=== PATIENT | male | born 1980 | race Caucasian/White ===

== ENCOUNTER 2017-07-17 19:38 | Emergency (ER) | payer SELFPAY ==
[~2017-07-17] VITALS: Ht 154.9 cm; Wt 81.6 kg
[2017-07-17] MEDS ORDERED: LIDOCAINE UROJET 2% GEL 10 ML PKG ONE (20:55)
[2017-07-17 21:11] LABS: BILIRUBIN,URINE NEGATIVE (NEGATIVE); CLARITY,URINE CLEAR; COLOR,URINE YELLOW; GLUCOSE, URINE (UA) NEGATIVE (NEGATIVE); KETONES,URINE NEGATIVE (NEGATIVE); LEUKOCYTE ESTERASE ,URINE 2+ (NEGATIVE); NITRITE,URINE NEGATIVE (NEGATIVE); PH,URINE 6 (5-9); PROTEIN,URINE NEGATIVE (NEGATIVE); UROBILINOGEN,URINE NORMAL (NORMAL)
--- NOTE | 2017-07-17 21:20 | ED GU-Male ---
General Chief Complaint: -Male Stated Complaint: CANT URINATE Nursing Triage Note: Pt has been unable to urinate fully since yesterday. Pt reports he was able to urinate yesterday with pain. Source: patient Exam Limitations: no limitations History of Present Illness Date Seen by Provider: Jul 17, 2017 Time Seen by Provider: 21:20 Initial Comments ER with reports of unable to fully empty the bladder since this morning. He dribbled only a small amount this morning Timing/Duration: this morning Severity/Quality: moderate Prior Genitourinary Problems: none Associated Symptoms: denies symptoms Allergies and Home Medications Allergies Coded Allergies: No Known Drug Allergies (Unverified , 07/17/17) Patient Home Medication List Home Medication List Reviewed: Yes Constitutional: see HPI EENTM: see HPI Respiratory: no symptoms reported Cardiovascular: no symptoms reported Genitourinary: see HPI Musculoskeletal: no symptoms reported Skin: no symptoms reported Psychiatric/Neurological: No Symptoms Reported Endocrine: No Symptoms Reported Past Fjixfpe-Gyazow-Miqasg Hx Patient Social History Recent Foreign Travel: No Contact w/Someone Who Travel: No Recent Infectious Disease Expo: No Physical Exam Vital Signs Vital Signs - First Documented 07/17/17 19:51 Temp 98.0 Pulse 88 Resp 18 B/P (MAP) 145/87 (106) Pulse Ox 97 O2 Delivery Room Air Capillary Refill : Less Than 3 Seconds General Appearance: WD/WN, no apparent distress HEENT: PERRL/EOMI, normal ENT inspection Neck: non-tender, full range of motion Respiratory: normal breath sounds, no respiratory distress, no accessory muscle use Gastrointestinal: normal bowel sounds, non tender Male: other (pt is uncircumcised. Urethral meatus is very small, an 8fr barnett catheter was able to pass but with some difficulty. drained 300ml clear yellow urine. ) Neurologic/Psychiatric: alert, normal mood/affect, oriented x 3 Skin: normal color, warm/dry Progress/Results/Core Measures Suspected Sepsis Recent Fever Within 48 Hours: No Infection Criteria Present: None New/Unexplained Altered Menta: No Sepsis Screen: No Definite Risk Sepsis Diagnosis: SIRS Temperature:98.0 Pulse: 88 Respiratory Rate: 18 Laboratory Tests 07/17/17 21:20: White Blood Count 8.8 Blood Pressure 145 /87 Mean: 106 Laboratory Tests 07/17/17 21:20: Creatinine 0.88, Platelet Count 234 Results/Orders Lab Results Laboratory Tests Test 07/17/17 21:02 07/17/17 21:20 07/17/17 21:56 Range/Units Urine Color YELLOW Urine Clarity CLEAR Urine pH 6 5-9 Urine Specific [place] 1.020 1.016-1.022 Urine Protein NEGATIVE NEGATIVE Urine Glucose (UA) NEGATIVE NEGATIVE Urine Ketones NEGATIVE NEGATIVE Urine Nitrite NEGATIVE NEGATIVE Urine Bilirubin NEGATIVE NEGATIVE Urine Urobilinogen NORMAL NORMAL MG/DL Urine Leukocyte Esterase 2+ H NEGATIVE Urine RBC (Auto) 2+ H NEGATIVE Urine RBC 5-10 H /HPF Urine WBC 0-2 /HPF Urine Crystals NONE /LPF Urine Bacteria NEGATIVE /HPF Urine Casts NONE /LPF Urine Mucus NEGATIVE /LPF Urine Culture Indicated YES White Blood Count 8.8 4.3-11.0 10^3/uL Red Blood Count 5.00 4.35-5.85 10^6/uL Hemoglobin 15.8 13.3-17.7 G/DL Hematocrit 45 40-54 % Mean Corpuscular Volume 90 80-99 FL Mean Corpuscular Hemoglobin 32 25-34 PG Mean Corpuscular Hemoglobin Concent 35 32-36 G/DL Red Cell Distribution Width 13.0 10.0-14.5 % Platelet Count 234 130-400 10^3/uL Mean Platelet Volume 11.0 H 7.4-10.4 FL Neutrophils (%) (Auto) 80 H 42-75 % Lymphocytes (%) (Auto) 14 12-44 % Monocytes (%) (Auto) 6 0-12 % Eosinophils (%) (Auto) 0 0-10 % Basophils (%) (Auto) 0 0-10 % Neutrophils # (Auto) 7.0 1.8-7.8 X 10^3 Lymphocytes # (Auto) 1.2 1.0-4.0 X 10^3 Monocytes # (Auto) 0.5 0.0-1.0 X 10^3 Eosinophils # (Auto) 0.0 0.0-0.3 10^3/uL Basophils # (Auto) 0.0 0.0-0.1 10^3/uL Sodium Level 141 135-145 MMOL/L Potassium Level 3.8 3.6-5.0 MMOL/L Chloride Level 109 H 98-107 MMOL/L Carbon Dioxide Level 24 21-32 MMOL/L Anion Gap 8 5-14 MMOL/L Blood Urea Nitrogen 18 7-18 MG/DL Creatinine 0.88 0.60-1.30 MG/DL Estimat Glomerular Filtration Rate > 60 BUN/Creatinine Ratio 20 Glucose Level 123 H 70-105 MG/DL Calcium Level 9.2 8.5-10.1 MG/DL My Orders Orders - WILY HAWTHORNE FREE LANCE MODEL Cbc With Automated Diff (07/17/17 21:06) Basic Metabolic Panel (07/17/17 21:06) Lidocaine 2% (Urojet) (Xylocaine Urojet) (07/17/17 21:30) Hydrocodone/Apap 5/325 Tablet (Lortab 5 (07/17/17 21:30) Neis Demetris Dna Urine Test (07/17/17 21:22) Chlamydia Dna Urine Test (07/17/17 21:22) Medications Given in ED Current Medications Medications Dose Ordered Sig/Yayo Route Start Time Stop Time Status Last Admin Dose Admin Acetaminophen/ Hydrocodone Bitart 1 tab ONCE ONCE PO 07/17/17 21:30 07/17/17 21:31 DC 07/17/17 21:46 1 TAB Lidocaine HCl 10 ml ONCE ONCE TOP 07/17/17 21:30 07/17/17 21:31 DC 07/17/17 21:03 10 ML Vital Signs/I&O Vital Sign - Last 12Hours 07/17/17 19:51 Temp 98.0 Pulse 88 Resp 18 B/P (MAP) 145/87 (106) Pulse Ox 97 O2 Delivery Room Air Capillary Refill : Less Than 3 Seconds Blood Pressure Mean: 106 Departure Communication (Admissions) Progress Notes 2229-urethral stricture Dr. Carrera was able to use lidocaine and curved hemostats to open the urethral stricture. dilated with 12 fr barnett cath, then 14fr barnett cath, then 16 fr barnett cath attached to a leg bag. would like to have pt come back to ER on Friday for Cath removal. Prophylactic antibiotics and follow up in office. Impression Impression: Primary Impression: Urethral stricture Disposition: HOME, SELF-CARE Condition: Stable Departure-Patient Inst. Decision time for Depature: 22:32 Referrals: NO,LOCAL PHYSICIAN (PCP/Family) Primary Care Physician Patient Instructions: NO INSTRUCTIONS GIVEN Add. Discharge Instructions: 1. Leave the catheter in place until Friday. Return to the emergency room on Friday to have the catheter removed. Take antibiotics as directed. Call Dr. Carrera's office on Friday morning for an appointment for follow-up. Scripts Sulfamethoxazole/Trimethoprim (Bactrim Ds Tablet) 1 Each Tablet 1 EACH PO BID, #10 TAB Prov: WILY HAWTHORNE APRN 07/17/17 Copy Copies To 1: ZAYDA CARRERA MD, PETER J APRN Jul 17, 2017 21:20
[2017-07-17] MEDS ORDERED: LIDOCAINE UROJET 2% GEL 10 ML PKG TOP ONE (21:30)
[2017-07-17] MEDS ORDERED: HYDROcodone/APAP 5 MG/325 MG (LORTAB) TAB PO ONE (21:30)
[2017-07-17 21:35] LABS: BASOPHILS % (AUTO) 0 % (0-10); EOSINOPHILS % (AUTO) 0 % (0-10); HEMATOCRIT 45 % (40-54); HEMOGLOBIN 15.8 G/DL (13.3-17.7); LYMPHOCYTES # (AUTO) 1.2 X 10^3 (1.0-4.0); LYMPHOCYTES % (AUTO) 14 % (12-44); MEAN CORPUSCULAR HEMOGLOBIN 32 PG (25-34); MEAN CORPUSCULAR HGB CONC 35 G/DL (32-36); MEAN CORPUSCULAR VOLUME 90 FL (80-99); MONOCYTES # (AUTO) 0.5 X 10^3 (0.0-1.0); MONOCYTES % (AUTO) 6 % (0-12); NEUTROPHILS % (AUTO) 80 % (42-75); PLATELET COUNT 234 10^3/uL (130-400); WHITE BLOOD COUNT 8.8 10^3/uL (4.3-11.0)
[2017-07-17 21:42] LABS: BACTERIA,URINE NEGATIVE /HPF; WBC,URINE 0-2 /HPF
[2017-07-17 21:51] LABS: BUN/CREATININE RATIO 20; CALCIUM 9.2 MG/DL (8.5-10.1); CARBON DIOXIDE 24 MMOL/L (21-32); CHLORIDE 109 MMOL/L (98-107); CREATININE SERUM 0.88 MG/DL (0.60-1.30); GFR ESTIMATED > 60; GLUCOSE 123 MG/DL (70-105); POTASSIUM 3.8 MMOL/L (3.6-5.0); SODIUM 141 MMOL/L (135-145)
[2017-07-17] MEDS ORDERED: SULF1TAB35 PO (22:34)
[2017-07-17 22:44] VITALS: BP 0/0
--- NOTE | 2017-07-17 23:12 | CONSULTATION REPORT ---
DATE OF SERVICE: 07/17/2017 CONSULTATION PROCEDURE REPORT ATTENDING PHYSICIAN: Rafita Daugherty MD. SUMMARY: A 36-year-old [place] nonspeaking [place]ian male presented to the emergency room with dribbling, difficult urination, was found to have a severe meatal stenosis. The ER physician market research assistant was able to pass only a straight clear 8-Haitian catheter and drained the bladder. On physical exam, the patient does have severe meatal stenosis, which was what looked like lichen sclerosis, uncircumcised testes down the scrotum. I attempted to pass a 10-Haitian, but unsuccessful. I did not want to do Sukhdev sound dilatation to avoid traumatization and severe pain. I took a straight hemostat. I was able to spread the opening big enough to insert first a 14 and then a 16-Haitian Posey catheter, inflated the balloon to 10 mL and left the catheter indwelling. IMPRESSION: Severe meatal stenosis with urinary retention. PLAN: Leave the catheter indwelling until Friday morning. The patient will come to the emergency room and have it out on Friday. He is to contact my office for a followup appointment. Job ID: [id number] DocumentID: [id number] Dictated Date: 07/17/2017 22:50:57 Automatic Maintainer Date: 07/17/2017 23:11:40 Dictated By: ZAYDA CARRERA MD
== END 2017-07-17 22:44 | disposition home or self-care (01) ==
LOC: ER 19:41
DX: N35.9 Urethral stricture, unspecified (principal)
CPT/HCPCS: 36415; 51702; 80048; 81000; 85025; 87088; 87491; 87591

== ENCOUNTER 2017-07-19 13:00 | Emergency (ER) | payer SELFPAY ==
[~2017-07-19] VITALS: Ht 162.6 cm; Wt 79.4 kg
[~2017-07-19 13:00] MED LIST: SULF1TAB35 PO
--- NOTE | 2017-07-19 14:58 | ED GU-Male ---
General Chief Complaint: Catheter/Drain/Tube Problems Stated Complaint: CATHETER REMOVAL Nursing Triage Note: PT HERE TO HAVE CATHETER REMOVED, PT HAD CATH PLACED ON FRIDAY W URETHRAL STRETCHING BY DR CARRERA. PT HAS FOLLOW UP ON FRIDAY History of Present Illness Date Seen by Provider: Jul 19, 2017 Time Seen by Provider: 14:40 Initial Comments 36-year-old male presents for removal of Posey catheter. He denies any problems. Allergies and Home Medications Allergies Coded Allergies: No Known Drug Allergies (Unverified , 07/17/17) Home Medications Sulfamethoxazole/Trimethoprim 1 Each Tablet, 1 EACH PO BID Prescribed by: WILY HAWTHORNE on 07/17/17 [id number] Patient Home Medication List Home Medication List Reviewed: Yes Constitutional: no symptoms reported, see HPI Genitourinary: no symptoms reported, see HPI, other (Posey catheter in place with pale yellow urine in collection bag) Past Bfrzfph-Cbqdig-Sydpoo Hx Patient Social History Alcohol Use: Rarely Uses Recreational Drug Use: No Smoking Status: Never a Smoker Recent Foreign Travel: No Contact w/Someone Who Travel: No Recent Infectious Disease Expo: No Recent Hopitalizations: No Physical Abuse: No Sexual Abuse: No Psychosocial Suicide Risk Score: 0 Reviewed Nursing Assessment Reviewed/Agree w Nursing PMH: Yes Physical Exam Vital Signs Vital Signs - First Documented 07/19/17 13:15 Temp 98.1 Pulse 77 Resp 18 B/P (MAP) 133/80 (97) Pulse Ox 96 Capillary Refill : Less Than 3 Seconds General Appearance: WD/WN, no apparent distress Gastrointestinal: normal bowel sounds, non tender, soft Genital/Rectal: normal genital exam, other (Posey catheter balloon deflated, removed with no complications. Patient denied any complaints.) Neurologic/Psychiatric: no motor/sensory deficits, alert, normal mood/affect Progress/Results/Core Measures Suspected Sepsis Recent Fever Within 48 Hours: No Infection Criteria Present: None New/Unexplained Altered Menta: No Sepsis Screen: No Definite Risk Sepsis Diagnosis: SIRS Temperature:98.1 Pulse: 77 Respiratory Rate: 18 Blood Pressure 133 /80 Mean: 97 Results/Orders Vital Signs/I&O Vital Sign - Last 12Hours 07/19/17 07/19/17 13:15 15:05 Temp 98.1 98.1 Pulse 77 77 Resp 18 18 B/P (MAP) 133/80 (97) 133/80 (97) Pulse Ox 96 96 Capillary Refill : Less Than 3 Seconds Blood Pressure Mean: 97 Departure Impression Impression: Primary Impression: Urethral stricture Qualified Codes: N35.9 - Urethral stricture, unspecified Disposition: HOME, SELF-CARE Condition: Stable (ERASED) Departure-Patient Inst. Decision time for Depature: 15:00 Referrals: NO,LOCAL PHYSICIAN (PCP/Family) Primary Care Physician Patient Instructions: Urinary Obstruction (DC) Add. Discharge Instructions: Increase water intake. Drink 1 glass of cranberry juice daily. Follow-up with Dr. Carrera, call his office on Friday [phone] Return to emergency department if unable to urinate, fever greater than 101, or new problems. All discharge instructions reviewed with patient and/or family. Voiced understanding. Copy Copies To 1: ZAYDA CARRERA MD, AMY ARNP Jul 19, 2017 14:58
[2017-07-19 15:05] VITALS: BP 133/80
== END 2017-07-19 15:06 | disposition home or self-care (01) ==
LOC: EDUNIT# 13:00 → ER 13:01
DX: N35.9 Urethral stricture, unspecified (principal)
CPT/HCPCS: 99281